=== PATIENT | male | born 1950 | race Caucasian/White ===

== ENCOUNTER 2019-03-28 07:35 | Day surgery (SDC) | payer MEDICARE ==
[~2019-03-28] VITALS: Ht 177.8 cm; Wt 94.3 kg
--- NOTE | ~2019-03-28 | OR ---
[facility] [address] [place], [place] [address] Draft DATE OF OPERATION: 03/28/2019 SURGEON: Neda Swenson MD PREOPERATIVE DIAGNOSES: 1. Left hydronephrosis. 2. History of metastatic rectal cancer, now with presumed involvement of the pelvic lymph nodes causing obstruction of the distal left ureter. POSTOPERATIVE DIAGNOSES: 1. Left hydronephrosis. 2. History of metastatic rectal cancer, now with presumed involvement of the pelvic lymph nodes causing obstruction of the distal left ureter. 3. Severe trilobar prostatic hyperplasia, obstructing visualization of the left ureteral orifice. PROCEDURES PERFORMED: 1. Diagnostic cystoscopy. 2. Attempted canalization of the left ureter. 3. Insertion of a 20-Sri Lankan two-way Hull catheter. ANESTHESIA: General. ESTIMATED BLOOD LOSS: 25 mL. COMPLICATIONS: None. SPECIMENS: None. INDICATIONS FOR PROCEDURE: Mr. Fong is a very pleasant 69-year-old gentleman with an unfortunate history of a metastatic rectal cancer, status post low anterior resection with creation of a colostomy. He was referred to me by Dr. Willett for consideration of left ureteral stent insertion after he recently underwent a CT scan, which revealed a 2 to 3 cm left pelvic sidewall mass along with associated left hydronephrosis. It is presumed that the pelvic mass is the cause of the obstruction of the left kidney. On initial PATIENT NAME: YOVANA FONG OPERATIVE REPORT DATE OF : 50 REPORT #: [id number] PHYSICIAN: NEDA SWENSON MD PCP: LAURIE MARTINEZ MD REPORT IS CONFIDENTIAL AND NOT TO BE RELEASED WITHOUT AUTHORIZATION [facility] [address] [place], [place] [address] Draft presentation, the patient did report some intermittent mild left flank pain, but was otherwise doing well. Since undergoing surgery four years ago, he has deferred any chemotherapy and/or radiation treatment at this time. After informing him of the risk of loss of function of the left kidney due to obstruction, the patient agreed to undergo a left retrograde pyelogram, followed by insertion of a left ureteral stent in an attempt to force drainage of the left collecting system. OPERATIVE FINDINGS: 1. On cystoscopy, I immediately noted an extremely elevated bladder neck with a very large, obstructing median lobe. There were approximately 3 cm from the level of the bladder neck to verumontanum. There was also a moderate to severe amount of lateral lobe hypertrophy noted. The presence of the obstructing prostate, primarily the median lobe, made it very difficult for me to visualize the bilateral ureteral orifices. Ultimately, I was able to visualize the right ureteral orifice, however, I was not able to visualize the left ureteral orifice. 2. The patient's obstructing prostate was very friable and began to bleed quite easily during cystoscopy. This is due to in combination of the size of the prostate as well as his known use of daily Coumadin for his history of DVT. Because I was unable to visualize the left ureteral orifice, I made the decision to abort this portion of procedure. 3. At the end of the procedure, a 20-Sri Lankan two-way Hull catheter was inserted into the patient's bladder and connected to gravity drainage. DESCRIPTION OF PROCEDURE: After informed consent was obtained, the patient was taken back to the operating room. He was transferred [facility] to the operating room table, where general anesthesia was induced. He was placed in the dorsal lithotomy position and his genitalia prepped and draped in a standard sterile fashion. Using a 30-degree lens on a 22.5-Sri Lankan introducer, a rigid cystoscope was inserted through the patient's urethra and into his bladder under direct visualization. Please see the above findings. I experienced a significant amount of resistance due to the elevated bladder neck as well as the presence of the very enlarged median lobe. This friable prostate tissue then began to bleed rather easily during cystoscopy, also limiting my visualization. After trying for at least 15 minutes to be able to visualize the bilateral ureteral orifices, I decided to abort this portion of the procedure. A Sensor wire was inserted into the indwelling 22.5 Sri Lankan sheath after removing the cystoscope. The sheath was then removed fully intact, leaving the Sensor wire behind. Over a wire, a 20-Sri Lankan two-way Hull catheter was inserted into the patient's bladder, and was connected to gravity drainage. Prior to connecting the catheter to gravity drainage, I did manually flush the catheter multiple times to ensure that there would be adequate drainage and minimal hemorrhage. The procedure was then terminated. The patient tolerated the procedure well without any complication. He will now be transferred to the postanesthesia care unit in stable PATIENT NAME: YOVANA FONG OPERATIVE REPORT DATE OF : 50 REPORT #: [id number] PHYSICIAN: NEDA SWENSON MD PCP: LAURIE MARTINEZ MD REPORT IS CONFIDENTIAL AND NOT TO BE RELEASED WITHOUT AUTHORIZATION [address] [address] Draft condition. DISPOSITION: Once the patient awoke from general anesthetic, I explained to him in detail that I was unable to successfully place the ureteral stent today due to the presence of severe trilobar prostatic hypertrophy. I recommended that he return to the operating room the following morning to undergo transurethral resection of the prostate. With removal of the obstructing portions of the prostate, namely, the median lobe and left lateral lobe, I would very likely be able to more easily visualize the left ureteral orifice in order to hopefully canalize the left ureteral orifice and in order to pass a stent up into the left collecting system. After describing the proposed procedure in detail, the patient agreed to undergo transurethral resection of the prostate on the following day. He will remain off his Coumadin for now, and will return to the operating room tomorrow morning to undergo TURP, along with cystoscopy with left ureteral stent insertion. MD MIRNA Lopez/KIM /[id number] Copies: ~ PATIENT NAME: YOVANA FONG OPERATIVE REPORT DATE OF : 50 REPORT #: [id number] PHYSICIAN: NEDA SWENSON MD PCP: LAURIE MARTINEZ MD REPORT IS CONFIDENTIAL AND NOT TO BE RELEASED WITHOUT AUTHORIZATION
[~2019-03-28 07:35] MED LIST: ADVIL200 MG PO; COUMADIN5 MG PO; ELIQUIS5 MG PO; FLOMAX0.4 MG PO; IBUPROFEN200 M1 PO; NORCO 5-325 TA1 EACH PO; PROSTATE HEALT1 EACH PO; TYLENOL EXTRA500 MG PO
[2019-03-28] MEDS ORDERED: FLOMAX0.4 MG PO (07:53)
--- NOTE | 2019-03-28 09:33 | NUR ---
PATIENT WAS RESTING COMFORTABLY IN ROOM. STATED HE NEEDED TO VOID. PATIENT AMBULATED WELL TO THE RESTROOM WELL BACK TO BED. NO QUESTIONS OR COMPLAINTS AT THIS TIME. IV ANTIBIOTICS RUNNING WELL AFTER RETURNING.
--- NOTE | 2019-03-28 11:26 | NUR ---
03/28/19 1126 Sheets,Vera 1117 PT ARRIVED TO PACU, PT NONAROUSABLE TO PAINFUL STIMULI, JAW THRUST NEEDED TO MAINTAIN AIRWAY. SMALL AMOUNT OF BLOOD NOTED ON TIP OF PENIS AT BROWN SITE. URINE ORANGE IN COLOR AND CONTINUES TO DRAIN TO GRAVITY. NO CLOTS NOTED. MD NOTED URINE AND NO NEW ORDERS.
--- NOTE | 2019-03-28 12:08 | NUR ---
PT RETURNS TO ROOM 4 FROM PACU ON ROOM AIR. PT AWAKE AND ORIENTED. PT DENIES PAIN/NAUSEA. FRESH WATER PROVIDED. CATHERTER IN PLACE AND DRAINING AT BEDSIDE. PT HAD GENERAL ANESTHESIA AND WILL RETURN TOMORROW FOR TURP PROCEDURE. QUESTIONS ANSWERED. PT DENIES OTHER NEEDS AT THIS TIME. CALL LIGHT WITHIN REACH
--- NOTE | 2019-03-28 12:11 | NUR ---
REPORT GIVEN TO PRIMARY RNNUNU
--- NOTE | 2019-03-28 13:58 | EKG ---
[facility] [address] [facility] [place] [address] Signed Normal sinus rhythm with sinus arrhythmia Minimal voltage criteria for LVH, may be normal variant Borderline ECG No previous ECGs available Confirmed by ALIS GRAVES MD ([id number]) on 03/28/2019 1:58:05 PM Electronically Signed By: ALIS GRAVES MD 03/28/19 1358 PATIENT NAME: AJITYOVANA ZIEGLER Electrocardiogram DATE OF : 50 PHYSICIAN: ALIS GRAVES MD REPORT #: [id number] REPORT IS CONFIDENTIAL AND NOT TO BE RELEASED WITHOUT AUTHORIZATION
--- NOTE | 2019-03-28 14:46 | NUR ---
PATIENT DISCHARGED FROM UNIT IN WHEELCHAIR AT 1335. PATIENT AMBULATED WELL FROM WHEELCHAIR TO VEHICLE. PATIENTS URINE WAS RED, THIS WAS REPORTED TO DR SWENSON. PATIENT ADVISED TO HYDRATE WELL BY PROVIDER WELL USE AN ABSORBENT PAD. PATIENT HAD NO QUESTIONS OR COMPLAINTS AT THIS TIME.
[2019-03-28] MEDS ORDERED: WARFARIN SODIUM5 MG PO (15:39)
[2019-03-28] MEDS ORDERED: PYRIDIUM200 MG PO (16:25)
[2019-03-28] MEDS ORDERED: CIPRO500 MG PO (16:25)
[2019-03-29] MEDS ORDERED: CIPRO500 MG PO (10:26)
== END 2019-03-28 13:35 | disposition home or self-care (01) ==
LOC: OPS 07:35 → DS 07:35 → OPS 09:15
PROVIDERS: Urology
PROC: 0T9B80Z Drainage of Bladder with Drainage Device, Via Natural or Artificial Opening Endoscopic (ICD-10-PCS; principal; 2019-03-28 09:15)
DX: N13.1 Hydronephrosis with ureteral stricture, not elsewhere classified (principal); N40.1 Benign prostatic hyperplasia with lower urinary tract symptoms; N32.0 Bladder-neck obstruction; C77.2 Secondary and unspecified malignant neoplasm of intra-abdominal lymph nodes; E78.5 Hyperlipidemia, unspecified; E78.00 Pure hypercholesterolemia, unspecified; Z85.048 Personal history of other malignant neoplasm of rectum, rectosigmoid junction, and anus; Z93.3 Colostomy status; Z88.2 Allergy status to sulfonamides; Z79.01 Long term (current) use of anticoagulants; G47.30 Sleep apnea, unspecified; Z99.89 Dependence on other enabling machines and devices
CPT/HCPCS: 00910; 93005; 93010; J0696; J1100; J2250; J2405; J3010; J7120

== ENCOUNTER 2019-03-29 05:45 | Day surgery (SDC) | payer MEDICARE ==
[~2019-03-29] VITALS: Ht 177.8 cm; Wt 94.3 kg
--- NOTE | ~2019-03-29 | OR ---
[facility] [address] [place], [place] [address] Draft DATE OF OPERATION: 03/29/2019 SURGEON: Neda Swenson MD PREOPERATIVE DIAGNOSES: 1. Left hydronephrosis. 2. Metastatic rectal cancer, with a large pelvic sidewall mass obstructing the distal left ureter. 3. Severe trilobar benign prostatic hyperplasia. POSTOPERATIVE DIAGNOSES: 1. Left hydronephrosis. 2. Metastatic rectal cancer, with a large pelvic sidewall mass obstructing the distal left ureter. 3. Severe trilobar benign prostatic hyperplasia. 4. Near-complete obliteration of the distal left ureter, secondary to large pelvic sidewall mass (likely related to metastatic rectal cancer). PROCEDURE PERFORMED: 1. Transurethral resection of the prostate. 2. Attempted left ureteral cannulization. ANESTHESIA: General. ESTIMATED BLOOD LOSS: 50 mL. COMPLICATIONS: None. SPECIMENS: Prostate chips sent to the lab for evaluation. DRAINS: A 22-Gambian 3-way Hull catheter, connected to continuous bladder irrigation. INDICATIONS FOR PROCEDURE: Mr. Fong is a very pleasant 69-year-old gentleman with a history of metastatic rectal cancer with a large pelvic sidewall mass on the left side, obstructing the distal PATIENT NAME: YOVANA FONG OPERATIVE REPORT DATE OF : 50 REPORT #: [id number] PHYSICIAN: NEDA SWENSON MD PCP: LAURIE MARTINEZ MD REPORT IS CONFIDENTIAL AND NOT TO BE RELEASED WITHOUT AUTHORIZATION [facility] [address] [place], [place] [address] Draft left ureter and resulting in left hydronephrosis. Attempts were made at passage of the left ureteral stent yesterday morning, however, this was unsuccessful due to the presence of severe trilobar prostatic hypertrophy that was blocking visualization of the left ureteral orifice. The patient presents this morning after my formal recommendation that he undergo transurethral resection of the obstructing prostate in an effort to improve visualization of the left ureteral orifice, while also improving what he now reports to be about a 4 to 5 year history of lower urinary tract symptoms. After discussion of the risks and benefits of the proposed procedure, the patient has agreed to proceed. OPERATIVE FINDINGS: 1. On cystoscopy, there was again noted severe trilobar hypertrophy with an extremely elevated bladder neck. Cystoscopy reveals no evidence of any suspicious masses, lesions, or stones within the bladder wall. On initial cystoscopy, I am unable to visualize the bilateral ureteral orifices, again due to the presence of a severely large and elevated median lobe. 2. The patient's obstructing median and left lateral lobes were resected using a 24-Gambian bipolar loop with a moderate amount of difficulty due to the shear volume of the prostate. There was also some concomitant hemorrhage due to the patient's recent Coumadin use (for his history of DVT). Overall, I was able to adequately resect both the median lobe and the left lateral lobe of the prostate. A bipolar loop was then used to cauterize the prostatic fossa in these areas. The bipolar loop was also used to shave some of the right lateral lobe of the prostate down. However, the right lateral lobe was not completely resected. 3. After approximately 20 minutes of searching for the left ureteral orifice, even with the utilization of a fluorescein dye, it was quite difficult to locate the ureteral orifice because there appeared to be no efflux of dye from the orifice. I finally was able to visualize the ureteral orifice and it was cannulized using an 8-Gambian ureteral catheter. A left retrograde pyelogram was performed. Please see the above findings. 4. Multiple attempts were made at passing both a 0.035 Glidewire and a 0.025 Glidewire through the open-ended ureteral catheter into the ureter. All these attempts were unsuccessful, likely due to almost complete obstruction of the distal left ureter noted on the retrograde pyelogram. After multiple attempts, I chose to abort this portion of the procedure as he was developing some hemorrhage due to manipulation of the prostatic urethra following resection. 5. A 22-Gambian 3-way Hull catheter was inserted into the patient's bladder over a Sensor wire without difficulty. 6. Left retrograde pyelogram was performed, which revealed an approximately 3 to 4 cm sized defect in the distal left ureter, consistent with what appears to be obliteration of this segment. This is likely due to the presence of external compression from the left mass present in the pelvic sidewall. PATIENT NAME: YOVANA FONG OPERATIVE REPORT DATE OF : 50 REPORT #: [id number] PHYSICIAN: NEDA SWENSON MD PCP: LAURIE MARTINEZ MD REPORT IS CONFIDENTIAL AND NOT TO BE RELEASED WITHOUT AUTHORIZATION [address] [address] Draft DESCRIPTION OF PROCEDURE: After informed consent was obtained, the patient was taken back to the operating room. He was transferred from the [facility] to the operating room table, where general anesthesia was induced. He was placed in the dorsal lithotomy position and his genitalia were prepped and draped in a standard sterile fashion. The patient's meatus was dilated from 18-Gambian to 28-Gambian using [place] sounds without difficulty. I then inserted the resectoscope using a visual obturator. I then inserted the sheath using a visual obturator. The sheath was removed and a resectoscope was then inserted into the patient's bladder. I then began resection of both the median and lateral lobes of the prostate using a 24-Gambian bipolar loop. I met with a moderate amount of hemorrhage during resection, likely due to the patient's active Coumadin use of which he stopped taking only 5 days ago. I was able to resect the entire median lobe of the prostate and also the entire left lateral lobe of the prostate. My focus was of course to increase my visualization of the left ureteral orifice in hopes to pass a ureteral stent for drainage of his obstructed left kidney. I was able to perform some resection of the right lateral lobe of the prostate. However, this was more limited to mostly bipolar button resection. After majority of the prostate tissue was extracted, I changed out the 24-Gambian loop for the bipolar button to obtain adequate hemostasis of the prostatic fossa. Once I was satisfied that adequate hemostasis had been achieved, I removed the resectoscope and inserted a 22-Gambian sheath and a 30-degree lens. I then began the search for the distal left ureteral orifice. I was able to visualize the right ureteral orifice without any difficulty. After about 20 minutes, I was finally able to visualize the left ureteral orifice and was able to appreciate that there was no evidence of any trauma of either ureteral orifices secondary to the resection of the median lobe of the prostate. I then attempted ureteral catheterization and was able to pass an 8-Gambian open-ended ureteral catheter only about 1 inch beyond the left ureteral orifice. I tried to pass multiple wires through the distal left ureter including both a 0.025 Sensor wire and a 0.035 Sensor wire without success. Prior to attempted wire passage, I did perform a left retrograde pyelogram. Please see the above findings. Once I was able to appreciate the depth of the obliteration of the distal left ureter, I decided to abort this portion of the procedure. Therefore, there was no ureteral stent placed within the left ureter during today's procedure. I then irrigated the patient's bladder one more time through the indwelling sheath to be sure there were no remaining prostate chips present within the patient's bladder. I then inserted a 0.035 Sensor wire through the sheath and into the patient's bladder. I removed the sheath and over the wire, I passed a 22-Gambian 3-way Hull catheter into the patient's bladder and connected it to continuous bladder irrigation. The procedure was then terminated. The patient tolerated the procedure well without any complication. He will now be transferred to the postanesthesia care unit in stable condition. DISPOSITION: The patient now will be transferred to the medical-surgical unit for continued PATIENT NAME: YOVANA FONG OPERATIVE REPORT DATE OF : 50 REPORT #: [id number] PHYSICIAN: NEDA SWENSON MD PCP: LAURIE MARTINEZ MD REPORT IS CONFIDENTIAL AND NOT TO BE RELEASED WITHOUT AUTHORIZATION [address] [address] Draft continuous bladder irrigation once he awakes from general anesthetic. His regular diet will be restarted and he will be given IV pain medication as needed. It is possible that he may be discharged to home later today if his urine remains clear for around 2 hours once his CBI is discontinued. If not, he will stay the night and receive another dose of IV antibiotics early in the morning and will be discharged once he is weaned completely off his CBI. The patient will be informed of my inability to successfully pass ureteral stent due to almost complete obstruction of his distal left ureter. I plan to make recommendations that he consider undergoing chemotherapy, followed by a repeat attempt at cannulization of the left ureter. There was also the possibility of placement of a nephrostomy tube, however, this is less likely, given the patient's active lifestyle. He will be scheduled to return to clinic this to undergo a voiding trial and with likely removal of his indwelling Hull catheter. MD MIRNA Lopez/KIM /[id number] Copies: ~ PATIENT NAME: YOVANA FONG OPERATIVE REPORT DATE OF : 50 REPORT #: [id number] PHYSICIAN: NEDA SWENSON MD PCP: LAURIE MARTINEZ MD REPORT IS CONFIDENTIAL AND NOT TO BE RELEASED WITHOUT AUTHORIZATION
[~2019-03-29 05:45] MED LIST changes: +CIPRO500 MG PO; +PYRIDIUM200 MG PO; +WARFARIN SODIUM5 MG PO
--- NOTE | 2019-03-29 10:23 | NUR ---
03/29/19 1023 Sheets,Vera 1011 PT ARRIVED TO PACU ON 10L VIA MASK, PT NONAROUSABLE TO PAINFUL STIMULI. RESP EVEN AND UNLABORED. 1017 PT WOKE AND STARTED MOVING ARMS AND GRABBING FOR HIS FACE. PT REORIENTED TO PACU AND PT ABLE TO FOLLOW COMMANDS TO OPEN HIS EYES AND ORAL AIRWAY REMOVED. PT DENIES PAIN AND NAUSEA. 1018 O2 MASK REMOVED. PT RESTING IN BED AWAKE TALKING TO RN.
[2019-03-29] MEDS ORDERED: CIPRO500 MG PO (10:26)
--- NOTE | 2019-03-29 11:18 | NUR ---
PT RECEIVED FROM PACU. CBI INFUSING, URINE BRIGHT YELLOW. PT ON ROOM AIR, LUNG SOUNDS CLEAR, DENIES SOB. PT DENIES NAUSEA, BOWEL TONES ACTIVE, PT PROVIDED WATER, DECLINING LUNCH AT THIS TIME. SCD TO RLE, LLE WITH DVT, PULSES PALPABLE. IV FLUIDS INFUSING NS AT 100 ML/HR. DISCUSS PLAN OF CARE FOR THE DAY, PT DENIES NEEDS AT THIS TIME.
--- NOTE | 2019-03-29 13:08 | NUR ---
PT RESTING IN BED. PT TOLERATED REGULAR DIET FOR LUNCH, DENIES NAUSEA. URINE IN BROWN TUBE YELLOW WITH SMALL AMOUNT OF FIBROUS SEDIMENT, CBI INCREASED SLIGHTLY. VSS. PT RATING PAIN 3/10, DENIES NEED FOR PAIN MEDICATION. PT DENIES OTHER NEEDS AT THIS TIME.
--- NOTE | 2019-03-29 14:12 | NUR ---
VSS. BROWN WITH A FEW SMALL CLOTS IN TUBE, CBI INCREASED, DRAINING WELL, CBI DECREASED, WILL CONTINUE TO MONITOR FOR CLOTS, URINE LIGHT YELLOW IN COLOR.
--- NOTE | 2019-03-29 14:44 | NUR ---
BROWN WITH YELLOW URINE, WITHOUT CLOTS, CBI DECREASED. PT SLEEPING, LEFT UNDISTURBED.
--- NOTE | 2019-03-29 15:45 | NUR ---
URINE IN BROWN TUBE YELLOW, SMALL AMOUNT OF SEDIMENT, CBI CLAMPED. DR. SWENSON CALLED FOR UPDATE, PLAN TO MONITOR URINE AND UPDATE DR. SWENSON AT 1700 REGARDING DISCHARGE TODAY VS TOMORROW. DISCUSSED WITH PT.
--- NOTE | 2019-03-29 17:21 | NUR ---
PT ALSO STATING IMPORTANT PERSON IS FRIEND NUNU PAYNE [phone]
--- NOTE | 2019-03-29 20:02 | NUR ---
RECEIVED REPORT FROM DAY SHIFT RN. PATIENT IS RESTING IN BED. PATIENT HAS CBI ON SLOW DRIP. DR SWENSON IN ROOM TO ASSES PATIENT. PATIENT DENIES ANY NEEDS. ALL QUESTIONS ANSWERED BY DR SWENSON. NO NEEDS NOTED. CALL LIGHT IN REACH.
--- NOTE | 2019-03-29 22:30 | NUR ---
PATIENT ASSESMENT COMPLETED. PATIENTS CBI REMAINS ON A SLOW DRIP. PATIENT DENIES ANY PAIN. GAUZE AROUND CATHER INSERTION POINT CHANGED AND HAS SMALL DRAINAGE NOTED. PATIENTS VITALS TAKEN AND RECORDED. BROWN EMPTIED. INTAKE AND OUPUT RECORDED. BROWN CARE COMPLETED. PATIENT PROVIDED WITH SANDWICH BOX AND SODA. PATIENTS ICE WATER REFILLED. PATIENT IS RESTING IN BED WATCHING TV AND EATING. PATIENT DENIES ANY NEEDS. CALL LIGHT IN REACH.
--- NOTE | 2019-03-30 00:49 | NUR ---
PATIENT ASSISTED TO THE RESTROOM A SBA. PATIENT WAS ABLE TO HAVE BM AND CHANGE COLOSTOMY. PATIENT IS BACK IN BED RESTING. CBI REMAINS AT A SLOW DRIP. NO FURTHER NEEDS NOTED. CALL LIGHT IN REACH.
--- NOTE | 2019-03-30 02:10 | NUR ---
PATIENT IS RESTING IN BED. PATIENTS VITALS TAKEN AND RECORDED. PATIENTS INTAKE AND OUPUT RECORDED. BROWN EMPTIED. CBI TITRATED DOWN. PATIENT DENIES ANY NEEDS. CALL LIGHT IN REACH.
--- NOTE | 2019-03-30 04:01 | NUR ---
PATIENT IS RESTING IN BED WITH EYES CLSOED, RR 17. CBI IS NOW CLAMPED.
--- NOTE | 2019-03-30 04:43 | NUR ---
PATIENT ASSISTED TO THE RESTROOM A SBA. PATIENT EMPTIED AND CLEANED OWN COLOSTOMY BAG. PATIENT IS NOW BACK IN BED RESTING. PATIENTS CBI REMAINS CLAMPED. PATIENT IS BACK IN BED RESTING. PATIENT DENIES ANY NEEDS. CALL LIGHT IN REACH.
--- NOTE | 2019-03-30 05:30 | NUR ---
PATIENT RESTED ON AND OFF THROUGHOUT THE SHIFT. PATIENT IS ON A REGULAR DIET, TOLERATING WELL, AND NO NAUSEA NOTED. PATIENT IS ON RA. PATIENT HAS SCDS ON RIGHT LEG ONLY HE HAS A CLOT IN HIS LEFT LEG. PATIENTS HAS 3WAY BROWN IN PLACE AND CBI HAS BEEN CLAMPED SINCE 399. PATIENT HAS COLOSTOMY AND DOES OWN CARE. PATIENT HAS DENIED ANY PAIN. PATIENT IS AAOX3 AND USES CALL LIGHT APPROPRIATELY.
--- NOTE | 2019-03-30 06:19 | NUR ---
PATIENTS VITALS TAKEN AND RECORDED. PATIENTS BROWN EMPTIED. CBI REMAINS CLAMPED. INTAKE AND OUPUT RECORDED. PATIENT DENIES ANY PAIN. NO NEEDS NOTED. CALL LIGHT IN REACH.
--- NOTE | 2019-03-30 07:15 | NUR ---
BEDSIDE HANDOFF REPORT RECEIVED FROM SPOTTER DRIVER RN. CBI CLAMPED. PT SLEEPING, LEFT UNDISTURBED.
--- NOTE | 2019-03-30 07:55 | NUR ---
PT RESTING IN BED. URINE IN BROWN TUBE LIGHT PINK YELLOW, CBI TUBE REMOVED, CAP PLACED TO PORT. IV ROCEPHIN GIVEN PER ORDER. PT DENIES PAIN. PT ON ROOM AIR, LUNG SOUNDS CLEAR. BOWEL TONES ACTIVE, DENIES NAUSEA. CMS INTACT, HX OF LLE DVT, PULSES STRONG, WITHOUT EDEMA. DISCUSSED PLAN OF CARE FOR THE DAY, PLAN OFR DISCHARGE THIS AM.
--- NOTE | 2019-03-30 08:06 | NUR ---
PATIENT RESTING IN BED. ICE WATER GIVEN. PATIENT REFUSED TO TAKE A SHOWER TODAY BECAUSE HE IS GOING TO BE DISCHARGE AND HE PREFERS TO TAKE A SHOWER AT HOME. ICE WATER GIVEN. CALL LIGHT WITHIN REACH. NO OTHER NEEDS AT THIS TIME
[2019-03-30] MEDS ORDERED: NORCO 5-325 TA1 EACH PO (08:10)
--- NOTE | 2019-03-30 08:11 | NUR ---
faxed the Cipro prescription to pharmacy.
--- NOTE | 2019-03-30 08:29 | NUR ---
PATIENT RESTING IN BED. PATIENT'S BREAKFAST ORDERED. CALL LIGHT WITHIN REACH. NO OTHER NEEDS AT THIS TIME
--- NOTE | 2019-03-30 09:12 | NUR ---
PATIENT IN BED WATCHING TV. VITAL SIGNS AND I&O DONE. CALL LIGHT WITHIN REACH. NO OTHER NEEDS AT THIS TIME
--- NOTE | 2019-03-31 12:40 | PATH ---
[facility] [address] [place] [address] Signed SPECIMEN(S): A PROSTATE CHIPS SPECIMEN SOURCE: A. PROSTATE CHIPS CLINICAL HISTORY: Prostate hypertrophy. FINAL PATHOLOGIC DIAGNOSIS: Prostate, transurethral resection: - Benign stromal and glandular hyperplasia. LJA:cml:C1NR MICROSCOPIC EXAMINATION: Histologic sections of all submitted blocks are examined by light microscopy. These findings, together with the gross examination, support the pathologic diagnosis. Multiplex immunostain Tricap is obtained on block A4, with results supporting benign status. GROSS DESCRIPTION: The specimen, labeled "CC, prostate," is received in formalin and consists of a 13 g, 7.0 x 4.5 x 1.3 cm aggregate of marsh to marsh-pink rubbery tissue fragments. No lesions are grossly identified. [employer] sections are submitted in cassettes (A1-A8). AM (under the direct supervision of a pathologist) The Gross Description was prepared using a voice recognition system. The report was reviewed for accuracy; however, sound-alike word errors, addition and/or deletions may occur. If there is any question about this report, please contact Client Services. ADDITIONAL NOTES: Immunohistochemical and/or in situ hybridization studies were performed on this case with the appropriate positive controls that react as expected. This test was developed and its performance characteristics determined by [facility]. It has not been cleared or approved by the U.S. Food and Drug Administration. The FDA has determined that such clearance or approval is not necessary. This test is used for clinical purposes. It should not be regarded as investigational or for research. [facility] is certified under the Clinical Laboratory Improvement Amendments of 1988 (CLIA) as qualified to perform high complexity clinical PATIENT NAME: YOVANA FONG PATHOLOGY DATE OF : 50 REPORT #: [id number] PHYSICIAN: [facility] PCP: LAURIE MARTINEZ MD REPORT IS CONFIDENTIAL AND NOT TO BE RELEASED WITHOUT AUTHORIZATION [facility] [address] [address] Signed laboratory testing. PERFORMING LABORATORY: The [place] [id number] (Pharmacy Technician Assistant: Lorena Melendez MD; CLIA# [id number]). [facility], [address] [address] (Pharmacy Technician Assistant: Khoa Alba MD; CLIA# [id number]). Diagnostician: Khoa Alba MD Pathologist Electronically Signed 03/31/2019 Copies: ~ PATIENT NAME: YOVANA FONG PATHOLOGY DATE OF : 50 REPORT #: [id number] PHYSICIAN: [facility] PCP: LAURIE MARTINEZ MD REPORT IS CONFIDENTIAL AND NOT TO BE RELEASED WITHOUT AUTHORIZATION
== END 2019-03-30 10:35 | disposition home or self-care (01) ==
LOC: DS 05:45 → MS 10:49 → DS 03-30 10:35
PROVIDERS: Urology
PROC: 0VT08ZZ Resection of Prostate, Via Natural or Artificial Opening Endoscopic (ICD-10-PCS; principal; 2019-03-29 06:45)
PROC: BT1FYZZ Fluoroscopy of Left Kidney, Ureter and Bladder using Other Contrast (ICD-10-PCS; 2019-03-29 06:45)
DX: N40.1 Benign prostatic hyperplasia with lower urinary tract symptoms (principal); N13.1 Hydronephrosis with ureteral stricture, not elsewhere classified; C19 Malignant neoplasm of rectosigmoid junction; E78.2 Mixed hyperlipidemia; C77.2 Secondary and unspecified malignant neoplasm of intra-abdominal lymph nodes; Z88.2 Allergy status to sulfonamides; Z79.01 Long term (current) use of anticoagulants
CPT/HCPCS: 00914; 74420; C1769; J0131; J0696; J1100; J2250; J2405; J2704; J3010; J7030; J7120; Q9967

== ENCOUNTER 2019-04-01 04:23 | Emergency (ER) | payer MEDICARE ==
[~2019-04-01] VITALS: Ht 177.8 cm; Wt 94.3 kg
== END 2019-04-01 06:53 | disposition home or self-care (01) ==
LOC: ED 04:23
PROC: 0T2BX0Z Change Drainage Device in Bladder, External Approach (ICD-10-PCS; principal; 2019-04-01)
PROC: 4A0D7LZ Measurement of Urinary Volume, Via Natural or Artificial Opening (ICD-10-PCS; 2019-04-01)
DX: R33.9 Retention of urine, unspecified (principal); Z87.891 Personal history of nicotine dependence; Z88.2 Allergy status to sulfonamides; Z79.01 Long term (current) use of anticoagulants
CPT/HCPCS: 51702; 51798; 99283-25; J1885

== ENCOUNTER 2020-03-20 06:36 | Day surgery (SDC) | payer MEDICARE ==
[~2020-03-20] VITALS: Ht 25.4 cm; Wt 91.6 kg
--- NOTE | ~2020-03-20 | OR ---
[facility] [address] [place], [place] [address] Draft DATE OF OPERATION: 03/20/2020 SURGEON: Presley Avendano MD PREOPERATIVE DIAGNOSES: 1. Recurrent rectal carcinoma. 2. Poor peripheral access. 3. Need for central venous access for chemotherapy. POSTOPERATIVE DIAGNOSES: 1. Recurrent rectal carcinoma. 2. Poor peripheral access. 3. Need for central venous access for chemotherapy. PROCEDURES: 1. Right internal jugular Bard port catheter (ultrasound-guided). 2. Surgeon-directed fluoroscopy. ANESTHESIA: Local with monitored anesthesia care, , GLOBAL SALES DIRECTOR INDICATIONS: This 70-year-old white man is patient of Dr. Toledo and Dr. Walter Martinez. He was noted to have recurrent rectal cancer with metastatic disease and has ongoing chemotherapy. He has had progressive decline of his peripheral access and hypersensitivity of his skin to peripheral IV access. On that basis, a Port-A-Cath has been recommended. He was seen somewhat urgently in the office on March 13, 2020, and is today to undergo placement of a Port-A-Cath device (Bard port catheter) for chemotherapy. We have discussed the risks of bleeding, infection, pneumothorax, and other unforeseen complications related to placement. He understands and wished to proceed. It is anticipated the right internal jugular approach would be used to minimize chances of catheter shear. FINDINGS: Right internal jugular vein was easily identified and easily accessed. The catheter was placed without problem with the tip in the atriocaval junction. Good function of the catheter was noted at the conclusion of the procedure. DESCRIPTION OF PROCEDURE: PATIENT NAME: YOVANA FONG OPERATIVE REPORT DATE OF : 50 REPORT #: [id number] PHYSICIAN: PRESLEY AVENDANO MD PCP: WALTER MARTINEZ MD REPORT IS CONFIDENTIAL AND NOT TO BE RELEASED WITHOUT AUTHORIZATION [facility] [address] [place], [place] [address] Draft The patient was brought to the operating room, placed in mild Trendelenburg position. The head flat against the padded table. His head was turned to the left. The neck and upper torso were clipped and prepared with a chlorhexidine solution and draped sterilely. A sterilely sheath SonoSite ultrasound probe was applied to the right neck, identifying well the carotid artery and jugular vein. With Trendelenburg position, the vein was well distended. A 1% lidocaine was injected into the skin, and using Seldinger technique, the right internal jugular vein was easily accessed showing dark nonpulsatile blood. A flexible J-wire was passed down the needle and the needle was removed. Ultrasound confirmed the wire to be in the internal jugular vein. Fluoroscopy was used to confirm the wire in the right heart system. Additional local anesthetic was injected transversely over the right pectoralis and a transverse incision made with a #15 blade. Using electrocautery, the subcutaneous tissue was divided and a pocket created inferiorly. A port device which was then flushed with heparinized saline was partially secured to the pectoralis fascia. In the neck, the area where the wire exited the neck, an incision was made with an #11 blade and subsequently dilator and peel-away sheath introducer passed over the wire. The wire and dilator were removed. Vigorous nonpulsatile dark blood was noted and a previously inspected and irrigated Groshong type catheter was passed down the peel-away sheath introducer as far as possible. Peel-away sheath introducer was removed. Aspiration on the catheter showed dark nonpulsatile blood upon aspiration easy flushing. The patient was placed in a neutral position and a small amount of dye was placed in the catheter and under fluoroscopic control, the tip of the catheter withdrawn to the atriocaval junction. The catheter was then delivered to the port site with the tunneling device through the subcutaneous space within close tunneling device, trimmed to the appropriate length and secured to the port device per manufacture's instructions with the enclosed collar device. The port was secured to the pectoralis fascia with the previously placed Vicryl suture. Access to the port with angled Lezama needle and heparinized saline showed easy withdrawal of blood and easy infusion. The pocket was closed with interrupted 2-0 Vicryl and a running subcuticular 3-0 Vicryl for the skin. Steri-Strips were applied. Percutaneous access was then undertaken with the Lezama needle again showing easy withdrawal of blood and easy infusion of heparinized saline. Fluoroscopy was used to confirm the path of the catheter, having no kinks or other aberrant morphology. Steri-Strips were applied to each wound and a silver sponge dressing applied to the port site itself. The patient was allowed to emerge from anesthesia and taken to the recovery room in good condition. Blood loss was about 10 mL. Sponge, needle, and instrument counts reported as correct x3. PATIENT NAME: YOVANA FONG OPERATIVE REPORT DATE OF : 50 REPORT #: [id number] PHYSICIAN: PRESLEY AVENDANO MD PCP: WALTER MARTINEZ MD REPORT IS CONFIDENTIAL AND NOT TO BE RELEASED WITHOUT AUTHORIZATION [address] [address] Draft MD NANDA Mercado/MODL /[id number] cc: Edson Toledo MD Copies: EDSON TOLEDO MD ~ PATIENT NAME: ARCENIOIRMAYOVANA OPERATIVE REPORT DATE OF : 50 REPORT #: [id number] PHYSICIAN: PRESLEY AVENDANO MD PCP: WALTER MARTINEZ MD REPORT IS CONFIDENTIAL AND NOT TO BE RELEASED WITHOUT AUTHORIZATION
[~2020-03-20 06:36] MED LIST changes: +DEXAMETHASONE4 MG PO; +EMEND150 MG IV; +LORAZEPAM1 MG PO; +MVASI25 MG/1 ML IV; +ONDANSETRON ODT8 MG PO; +OXALIPLATIN100 MG IV; +XELODA500 MG PO
--- NOTE | 2020-03-20 09:22 | NUR ---
03/20/20 0922 Romina Blanco 0826 PT ARRIVED IN PACU SLEEPY WITH NO C/O'S. 0840 PCXR DONE. 0850 PT VISITING WITH STAFF. NO C/O'S. 0905 PT GETTING DRESSED. 0915 PT DRESSED. DC INSTRUCTIONS GIVEN. ALL QUESTIONS ANSWERED. WAITING ON RIDE.
[2020-03-20] MEDS ORDERED: ACETAMINOPHEN500 MG PO (09:30)
[2020-03-20] MEDS ORDERED: IBUPROFEN600 MG PO (09:30)
[2020-03-20] MEDS ORDERED: OXYCODON-ACETA1 EAC2 PO (09:30)
== END 2020-03-20 09:26 | disposition home or self-care (01) ==
LOC: OPS 06:36 → DS 06:36 → OPS 06:45 → DS 06:45 → OPS 08:15
PROVIDERS: ATTEND Surgery
PROC: 05HM33Z Insertion of Infusion Device into Right Internal Jugular Vein, Percutaneous Approach (ICD-10-PCS; 2020-03-20)
PROC: B513ZZA Fluoroscopy of Right Jugular Veins, Guidance (ICD-10-PCS; 2020-03-20)
PROC: 0JH60WZ Insertion of Totally Implantable Vascular Access Device into Chest Subcutaneous Tissue and Fascia, Open Approach (ICD-10-PCS; principal; 2020-03-20 06:45)
DX: C20 Malignant neoplasm of rectum (principal); I10 Essential (primary) hypertension; F32.9 Major depressive disorder, single episode, unspecified; Z88.2 Allergy status to sulfonamides; Z79.899 Other long term (current) drug therapy
CPT/HCPCS: 00532; 36556; 71045; 77001; C1788; J0690; J1644; J2704; J7121